=== PATIENT | female | born 1995 | race Caucasian/White ===

== ENCOUNTER 2022-08-27 16:39 | Inpatient (IN) ==
[2022-08-27] MEDS ORDERED: SODIUM CHLORIDE 0.9% 1000ML 1,000 ML IV STA (16:47)
[2022-08-27] MEDS ORDERED: ONDANSETRON INJ 2 MG/ML 2 ML VIAL IV STA (16:47)
--- NOTE | 2022-08-27 16:52 | Emergency Department Note ---
Impression & Plan Closed fracture of right fibula and tibia, Contusion of hand, right ED Provider Note NAME: ARNALDO HARTLEY AGE: 26 SEX: F : 1995 ARRIVES VIA: Ambulance INFORMANT: Patient, ED PROVIDER(S): Phi Cedillo DO CHIEF COMPLAINT: Right leg pain HPI: The patient is a 26-year-old female who presented to the emergency department by ambulance for an evaluation of right leg injury. The patient was on roller skates. She fell but her foot was in the roller skate and she felt an injury to the right leg. The patient was unable to ambulate. She was brought to the emergency department by ambulance. She received no medication but was splinted prior to arrival. She denies having any other injuries. She states that she had a similar episode and injured her left forearm in the past. She is very anxious because of this previous injury. She denies having any headache nausea or vomiting. She was wearing a helmet. She denies having any back pain. ROS: See above HPI for pertinent positives & negatives. A total of 10 systems reviewed and were otherwise negative. PAST MEDICAL HISTORY: See Below PAST SURGICAL HISTORY: See Below FAMILY HISTORY: See Below SOCIAL HISTORY: See Below HOME MEDICATIONS: See Below ALLERGIES: See Below VITALS: See Below PHYSICAL EXAMINATION: GENERAL: The patient is awake and alert. She is very anxious and appears to be in severe pain EYES: The conjunctivae are clear. The pupils are round and reactive. EARS, NOSE, MOUTH AND THROAT: The nose is without any evidence of any deformity. NECK: The neck is nontender and supple. RESPIRATORY: Normal respiratory effort is noted there is no evidence of wheezing rhonchi or rales CARDIOVASCULAR: Regular rate and rhythm noted there no murmurs rubs or gallops normal S1 normal S2. GASTROINTESTINAL: The abdomen is soft. Abdomen is nontender. BACK: No midline tenderness or or step-off noted range of motion in flexion extension as well as rotation no signs of muscle spasm noted MUSCULOSKELETAL/EXTREMITIES: There is severe tenderness and deformity to the right lower leg. Appears to be mostly on her distal tib-fib. She does not have any pain over her right knee. She has no pain over her proximal fibula. She does have pain over the lateral aspect of her right foot. There is ecchymosis over that area as well. SKIN: There is no obvious evidence of any rash. There are no petechiae, pallor or cyanosis noted. NEUROLOGIC: Patient is awake alert and oriented x3 MEDICAL DECISION MAKING: The patient is a 26-year-old female who presented to the emergency department for an evaluation after an injury to her right leg. She was at a skating camp at [place]. She fell and injured her right leg. The patient has had a very bad experience with a left forearm fracture in the past. For this reason she was very anxious and required significant pain management as well as anxiety ma nagement. I discussed patient's laboratory and radiographic studies with her. She was found to have a fracture to her tib-fib. This was significant and likely will require surgical management. For this reason I discussed her condition with the on-call orthopedic surgeon. They have agreed to evaluate the patient in the emergency department for further management and disposition. The patient was treated with pain medication. She was treated with splinting. The patient was significantly improved. Triage Nursing notes reviewed. Prior medical records reviewed Vital Signs: reviewed and remarkable for no significant abnormalities Differential diagnosis: Fracture, subluxation, dislocation, contusion, ligamentous injury, neurovascular, compartment syndrome, rhabdomyolysis, as well as other patho logies. ER treatment provided: See below Diagnostics interpreted by me: ECG: none Cardiac Monitoring: An order was placed for continuous cardiac monitoring. The monitor shows a rate of 62 bpm with sinus rhythm. Laboratory studies: As stated above and show below. Imaging studies: See below. Radiographic imaging was reviewed by myself Consultation(s): I discussed this case with Dr. Montes who is on for orthopedics. He will admit the patient primarily to his service likely for operative management tom morning. The patient is to be n.p.o. after midnight. Past Med/Surg History Medical History Left forearm fracture Social History Smoking Status: Never smoker Preferred Language: Indonesian Feels Safe at Home: Yes Allergies Allergies Allergy/AdvReac Type Severity Reaction Status Date / Time cefepime Allergy Severe neurotropen Verified 08/27/22 18:46 ia ketamine Allergy Severe Difficulty Verified 08/27/22 18:46 Breathing peanut Allergy Severe Anaphylaxis Verified 08/27/22 18:46 vancomycin Allergy Severe redmans Verified 08/27/22 18:46 syndrome sesame seed Allergy Intermediate Gastrointestinal Verified 08/27/22 18:46 Upset pollen extracts Allergy Mild sneezing & Verified 08/27/22 18:46 itchy,watery eyes Home Meds Home Medications Medication Instructions Recorded Confirmed epinephrine 0.3 mg/0.3 mL 0.3 ml IM UD PRN Anaphylaxis 08/27/22 08/27/22 injection, auto-injector hydroxyzine HCl 25 mg tablet 25 mg PO TID PRN Anxiety 08/27/22 08/27/22 methylphenidate HCl 5 mg tablet 5 mg PO BID 08/27/22 08/27/22 ofloxacin 0.3 % ear drops 1 drp otic (ear) UD 08/27/22 08/27/22 trazodone 150 mg tablet 150 mg PO HS PRN Sleep 08/27/22 08/27/22 Results & Data (ED) Vital Signs Vital Signs - 24 hr 08/27/22 16:47 Temperature 37.3 C Temperature Source Oral Pulse Rate 99 H Respiratory Rate 24 Respiratory Pattern Tachypnea Blood Pressure 132/87 Blood Pressure Mean 102 Pulse Oximetry 100 Oxygen Delivery Method Room Air Sepsis Recent Fever Within 48 Hours No Sepsis New/Unexplained Change in Mental Status N/A Sepsis Action Taken by Nursing No Action Required Home Medications Current Medication List: was personally reviewed by me Laboratory Data Attestation: I reviewed the patient's lab results. 08/27/22 17:01 08/27/22 17:01 Lab Results 08/27/22 08/27/22 08/27/22 Range/Units 17:01 17:01 17:01 WBC 14.97 H (4.8-10.8) K/ul RBC 4.49 (4.20-5.40) M/uL Hgb 13.5 (12.0-16.0) g/dl Hct 38.1 (37.0-47.0) % MCV 84.9 (80.0-100.0) fL MCH 30.1 (25.0-34.0) pg MCHC 35.4 (32.0-36.0) g/dL RDW Std Deviation 37.3 (36.4-46.3) fL RDW Coeff of Tiburcio 12.2 (11.5-14.5) % Plt Count 342 (130-400) K/uL MPV 10.0 (9.4-12.4) fL Immature Gran % (Auto) 0.5 % Neut % (Auto) 80.8 % Lymph % (Auto) 11.4 % [place] % (Auto) 6.6 % Eos % (Auto) 0.2 % Baso % (Auto) 0.5 % Neut # (Auto) 12.11 H (1.40-6.50) K/uL Lymph # (Auto) 1.70 (1.2-3.4) K/uL [place] # (Auto) 0.99 H (0.11-0.59) K/uL Eos # (Auto) 0.03 (0-0.50) K/uL Baso # (Auto) 0.07 (0-0.2) K/uL Immature Gran # (Auto) 0.07 (0.01-0.20) K/uL Sodium 141 (136-145) mmol/L Potassium 3.3 L (3.5-5.1) mmol/L Chloride 106 (98-107) mmol/L Carbon Dioxide 23 (21-32) mmol/L Anion Gap 12 H (3-11) BUN 8 (6-23) mg/dl Creatinine 0.55 L (0.6-1.2) mg/dl Est Cr Clr Drug Dosing 173.6 ml/min Est GFR ( Amer) > 150.0 ml/min Est GFR (Non-Af Amer) 129.5 ml/min BUN/Creatinine Ratio 14.5 (10-20) Glucose 85 (70-99(Fasting)) mg/dl Calcium 9.5 (8.6-10.3) mg/dl Total Bilirubin 0.7 (0.2-1.0) mg/dl AST 26 (13-39) U/L ALT 32 (7-52) U/L Alkaline Phosphatase 89 (34-104) U/L Total Protein 7.4 (6.0-8.3) gm/dl Albumin 4.7 (3.4-5.0) gm/dl Globulin 2.7 (2.5-4.0) gm/dl Albumin/Globulin Ratio 1.7 (0.9-2) Lipase 14 (11-82) U/L HCG, Qual Negative (Negative) SARS-CoV-2, RNA, NAAT (NEGATIVE) 08/27/22 Range/Units 17:59 WBC (4.8-10.8) K/ul RBC (4.20-5.40) M/uL Hgb (12.0-16.0) g/dl Hct (37.0-47.0) % MCV (80.0-100.0) fL MCH (25.0-34.0) pg MCHC (32.0-36.0) g/dL RDW Std Deviation (36.4-46.3) fL RDW Coeff of Tiburcio (11.5-14.5) % Plt Count (130-400) K/uL MPV (9.4-12.4) fL Immature Gran % (Auto) % Neut % (Auto) % Lymph % (Auto) % [place] % (Auto) % Eos % (Auto) % Baso % (Auto) % Neut # (Auto) (1.40-6.50) K/uL Lymph # (Auto) (1.2-3.4) K/uL [place] # (Auto) (0.11-0.59) K/uL Eos # (Auto) (0-0.50) K/uL Baso # (Auto) (0-0.2) K/uL Immature Gran # (Auto) (0.01-0.20) K/uL Sodium (136-145) mmol/L Potassium (3.5-5.1) mmol/L Chloride (98-107) mmol/L Carbon Dioxide (21-32) mmol/L Anion Gap (3-11) BUN (6-23) mg/dl Creatinine (0.6-1.2) mg/dl Est Cr Clr Drug Dosing ml/min Est GFR ( Amer) ml/min Est GFR (Non-Af Amer) ml/min BUN/Creatinine Ratio (10-20) Glucose (70-99(Fasting)) mg/dl Calcium (8.6-10.3) mg/dl Total Bilirubin (0.2-1.0) mg/dl AST (13-39) U/L ALT (7-52) U/L Alkaline Phosphatase (34-104) U/L Total Protein (6.0-8.3) gm/dl Albumin (3.4-5.0) gm/dl Globulin (2.5-4.0) gm/dl Albumin/Globulin Ratio (0.9-2) Lipase (11-82) U/L HCG, Qual (Negative) SARS-CoV-2, RNA, NAAT NEGATIVE (NEGATIVE) Administered Medications Morphine Sulfate (Morphine Sulfate 4 Mg/Ml 1 Ml Carp\Vial) 4 mg IV Q15M PRN PRN Reason: Pain Stop: 09/10/22 16:46 Last Admin: 08/27/22 20:28 Dose: 4 mg Documented By: Admin: 08/27/22 17:36 Dose: 4 mg Documented By: Admin: 08/27/22 17:08 Dose: 4 mg Documented By: DHAVAL Oxycodone/Acetaminophen (Oxycodone/Acetaminophen 5mg/325mg Tab) 1 - 2 tab PO Q4H PRN PRN Reason: Pain Stop: 09/10/22 20:21 Last Admin: 08/27/22 22:09 Dose: 2 tab Documented By: MILLICENT Discontinued Medications Sodium Chloride (Nss 1000ml) 1,000 mls @ 999 mls/hr IV .Q1H1M STA Stop: 08/27/22 17:47 Last Infusion: 08/27/22 18:47 Dose: 0 mls/hr Documented By: Admin: 08/27/22 17:08 Dose: 999 mls/hr Documented By: DHAVAL Lorazepam (Lorazepam 2 Mg/1 Ml Vial) 1 mg IV NOW STA Stop: 08/27/22 17:03 Last Admin: 08/27/22 17:07 Dose: 1 mg Documented By: DHAVAL Ondansetron HCl (Ondansetron Inj 2 Mg/Ml 2 Ml Vial) 4 mg IV NOW STA Stop: 08/27/22 16:48 Last Admin: 08/27/22 17:07 Dose: 4 mg Documented By: DHAVAL Imaging Data Attestation: I personally reviewed and interpreted this imaging study as foll ows: My Impression: X-ray of the right tib-fib was obtained in the emergency department. My interpretation is displaced right tib-fib fracture, final report below. X-ray of the right hand was obtained in the emergency department. My interpretation is no fracture, final report below. Chest x-ray was obtained in the emergency department. My interpretation is no acute disease no infiltrate, final report below Radiologist's Impression: Tibia/Fibula X-Ray 08/27/22 16:47 XR tibia fibula RT 2V CLINICAL HISTORY: Trauma. Right lower leg pain. COMPARISON STUDY: None. FINDINGS: Soft tissue swelling within the right lower leg. No radiopaque foreign bodies. There are displaced oblique fractures within the proximal shaft of the right fibula and distal shaft of the right tibia. The proximal fibular fracture demonstrates 4 mm of medial displacement. The distal tibial fracture demonstrates 7 mm of lateral displacement. The ankle mortise is maintained. IMPRESSION: Displaced right tibial and fibular fractures as described above. ACT 112: Negative or not required by law. Electronically signed by: Lul Stevenson M.D. 08/27/2022 5:56 PM Chest X-Ray 08/27/22 17:51 XR chest 1V portable HISTORY: Preop. Right tibial fracture. COMPARISON: None. FINDINGS: The lungs are clear. Cardiac silhouette is normal in size. No pleural effusions. No pneumothorax. IMPRESSION: No acute process. ACT 112: Negative or not required by law. Electronically signed by: Lul Stevenson M.D. 08/27/2022 6:50 PM Hand X-Ray 08/27/22 18:02 XR hand RT min 3V routine CLINICAL HISTORY: fall. Right thumb pain. COMPARISON STUDY: None. FINDINGS: No fracture or dislocation within the right hand. Specifically, the right thumb is intact. No radiopaque foreign bodies. No soft tissue swelling. IMPRESSION: No fracture or dislocation within the right hand. ACT 112: Negative or not required by law. Electronically signed by: Lul Stevenson M.D. 08/27/2022 6:52 PM Discharge Plan Visit Data Chief Complaint: Ankle Pain Stated Complaint: Ankle Pain ED Provider: Phi Cedillo Discharge Problem: Closed fracture of right fibula and tibia, Contusion of hand, right Patient Disposition: Admitted As Inpatient Discharge Instructions Interventions: ED Discharge Assessment Last Done: 08/27/22 19:53
[2022-08-27] MEDS ORDERED: LORazepam 2 MG/1 ML VIAL IV STA (17:02)
[2022-08-27] MEDS: MoRPHine SULFATE 4 MG/ML 1 ML CARP\\VIAL IV PRN ×3 (17:08→20:28)
--- NOTE | 2022-08-27 17:57 | XRay Report ---
XR tibia fibula RT 2V CLINICAL HISTORY: Trauma. Right lower leg pain. COMPARISON STUDY: None. FINDINGS: Soft tissue swelling within the right lower leg. No radiopaque foreign bodies. There are di splaced oblique fractures within the proximal shaft of the right fibula and distal shaft of the right tibia. The proximal fibular fracture demonstrates 4 mm of medial displacement. The distal tibial fra cture demonstrates 7 mm of lateral displacement. The ankle mortise is maintained. IMPRESSION: Displaced right tibial and fibular fractures as described above. ACT 112: Negative or not required by law. Electronically signed by: Lul Stevenson M.D. 08/27/2022 5:56 PM
[2022-08-27 18:03] LABS: Basophils # (auto) 0.07 K/uL (0-0.2); Basophils % (auto) 0.5 %; Eosinophils # (auto) 0.03 K/uL (0-0.50); Eosinophils % (auto) 0.2 %; Hematocrit (blood only) 38.1 % (37.0-47.0); Hemoglobin 13.5 g/dl (12.0-16.0); Immature Granulocytes # (auto) 0.07 K/uL (0.01-0.20); Immature Granulocytes % (auto) 0.5 %; Lymphocytes % (auto) 11.4 %; Mean Corpuscular Hemoglobin 30.1 pg (25.0-34.0); Mean Corpuscular Hgb Conc 35.4 g/dL (32.0-36.0); Mean Corpuscular Volume 84.9 fL (80.0-100.0); Monocytes # (auto) 0.99 K/uL (0.11-0.59); Monocytes % (auto) 6.6 %; Neutrophils # (auto) 12.11 K/uL (1.40-6.50); Neutrophils % (auto) 80.8 %; Platelet Count 342 K/uL (130-400); RDW Coefficient of Variation 12.2 % (11.5-14.5); RDW Standard Deviation 37.3 fL (36.4-46.3); Red Blood Count 4.49 M/uL (4.20-5.40); White Blood Count 14.97 K/ul (4.8-10.8)
[2022-08-27 18:12] LABS: Alanine Aminotransferase 32 U/L (7-52); Albumin Globulin Ratio 1.7 (0.9-2); Albumin Level 4.7 gm/dl (3.4-5.0); Alkaline Phosphatase 89 U/L (34-104); Anion Gap 12 (3-11); Aspartate Aminotransferase 26 U/L (13-39); BUN Creatinine Ratio 14.5 (10-20); Bilirubin,Total 0.7 mg/dl (0.2-1.0); Blood Urea Nitrogen 8 mg/dl (6-23); Calcium 9.5 mg/dl (8.6-10.3); Carbon Dioxide 23 mmol/L (21-32); Chloride 106 mmol/L (98-107); Creatinine Clr Calc Pharmacy 173.6 ml/min; Est GFR (African American) > 150.0 ml/min; Est GFR (Non-African American) 129.5 ml/min; Globulin 2.7 gm/dl (2.5-4.0); Glucose 85 mg/dl (70-99(Fasting)); Lipase 14 U/L (11-82); Potassium 3.3 mmol/L (3.5-5.1); Sodium 141 mmol/L (136-145); Total Protein 7.4 gm/dl (6.0-8.3)
[2022-08-27 18:19] LABS: Pregnancy Test, Serum Negative (Negative)
--- NOTE | 2022-08-27 18:51 | XRay Report ---
XR chest 1V portable HISTORY: Preop. Right tibial fracture. COMPARISON: None. FINDINGS: The lungs are clear. Cardiac silhouette is normal in size. No pleural effusions. No pneumot horax. IMPRESSION: No acute process. ACT 112: Negative or not required by law. Electronically signed by: Lul Stevenson M.D. 08/27/2022 6:50 PM
--- NOTE | 2022-08-27 18:53 | XRay Report ---
XR hand RT min 3V routine CLINICAL HISTORY: fall. Right thumb pain. COMPARISON STUDY: None. FINDINGS: No fracture or dislocation within the right hand. Specifically, the right thumb is intact. No radiopaque foreign bodies. No soft tissue swelling. IMPRESSION: No fracture or dislocation within the right hand. ACT 112: Negative or not required by law. Electronically signed by: Lul Stevenson M.D. 08/27/2022 6:52 PM
[2022-08-27] MEDS: oxyCODONE/ACETAMINOPHEN 5mg/325mg TAB PO PRN (22:09)
[2022-08-28] MEDS: MoRPHine SULFATE 4 MG/ML 1 ML CARP\\VIAL IV PRN ×4 (04:16→18:49)
[2022-08-28] MEDS ORDERED: ceFAZolin 2000MG 2,000 MG/15 ML SYR IV SCH (06:00)
[2022-08-28] MEDS: ONDANSETRON INJ 2 MG/ML 2 ML VIAL IV PRN ×2 (06:11→18:49)
[2022-08-28] MEDS ORDERED: LIDOCAINE 2% 2 ML VIAL/AMP(20MG/ML) INFIL ONE (06:56)
[2022-08-28] MEDS ORDERED: DEXAMETHASONE SOD INJ 4 MG/ML VIAL ONE (06:56)
[2022-08-28] MEDS ORDERED: MIDAZOLAM HCL 1 MG/ML 2ML VIAL ONE (06:56)
[2022-08-28] MEDS ORDERED: fentaNYL citrate PF 100 MCG/2 ML VIAL ONE (06:56)
[2022-08-28] MEDS ORDERED: ONDANSETRON INJ 2 MG/ML 2 ML VIAL ONE (06:56)
[2022-08-28] MEDS ORDERED: PROPOFOL IV EMULSION 10 MG/ML 20 ML VIAL IV ONE ×2 (06:56→10:13)
--- NOTE | 2022-08-28 07:40 | Anesthesiology Consultation ---
Date of Service August 28, 2022 Assessment & Plan Chart Review Chart Review: Acceptable Risk for Surgery and Patient NOT seen in Pre Admission Testing Consults Requested none ASA ASA2 Proposed Anesthesia Anesthesia Type: General History Surgery Operation Date: 08/28/22 07:30 Proposed Procedures p Right Intramedullary Nail Tibia - Bran R. Simon, Height/Weight Height: 5 ft 3 in Weight: 94.3 kg Allergies Allergy/AdvReac Type Severity Reaction Status Date / Time cefepime Allergy Severe neurotropen Verified 08/27/22 18:46 ia ketamine Allergy Severe Difficulty Verified 08/27/22 18:46 Breathing peanut Allergy Severe Anaphylaxis Verified 08/27/22 18:46 vancomycin Allergy Severe redmans Verified 08/27/22 18:46 syndrome sesame seed Allergy Intermediate Gastrointestinal Verified 08/27/22 18:46 Upset pollen extracts Allergy Mild sneezing & Verified 08/27/22 18:46 itchy,watery eyes Medications Home Medications Medication Instructions Recorded Confirmed Last Taken epinephrine 0.3 mg/0.3 mL 0.3 ml IM UD PRN Anaphylaxis 08/27/22 08/27/22 Unknown injection, auto-injector hydroxyzine HCl 25 mg tablet 25 mg PO TID PRN Anxiety 08/27/22 08/27/22 Unknown methylphenidate HCl 5 mg tablet 5 mg PO BID 08/27/22 08/27/22 08/22/22 ofloxacin 0.3 % ear drops 1 drp otic (ear) UD 08/27/22 08/27/22 Unknown trazodone 150 mg tablet 150 mg PO HS PRN Sleep 08/27/22 08/27/22 Unknown Active Medications Generic Name Dose Route Start Last Admin Trade Name Freq PRN Reason Stop Dose Admin Morphine Sulfate 4 mg 08/27/22 16:47 08/28/22 07:33 Morphine Sulfate 4 Mg/Ml 1 Ml Carp\Vial IV 09/10/22 16:46 4 mg Q15M PRN Administration Pain Ondansetron HCl 4 mg 08/27/22 20:22 08/28/22 06:11 Ondansetron Inj 2 Mg/Ml 2 Ml Vial IV 09/26/22 20:21 4 mg Q6H PRN Administration Nausea/Vomiting Oxycodone/Acetaminophen 1 - 2 tab 08/27/22 20:22 08/27/22 22:09 Oxycodone/Acetaminophen 5mg/325mg Tab PO 09/10/22 20:21 2 tab Q4H PRN Administration Pain Past Medical History Medical History Left forearm fracture obese ADHD Exercise / Class Metabolic Activity II 4-5 Yardwork/Stairs/Walk up hill Past Anesthesia History No Hx of Anesthesia Complications and No Family Hx of Anesthesia Complications History of PONV No Hx of PONV and No Hx of Motion Sickness Social History Smoking Status: Never smoker Do You Dip or Chew Tobacco: No Hx Alcohol Use: Yes Alcohol type: beer alcohol intake frequency: holidays/special occasions only Hx Substance Use: Yes substance use type: marijuana Last Used Substance: Days (ago) Physical Exam Vital Signs Last Vital Signs Temp 36.9 C 08/27/22 20:00 Pulse 123 H 08/27/22 20:00 Resp 20 08/27/22 20:00 BP 146/85 H 08/27/22 20:00 Pulse Ox 98 08/27/22 20:00 O2 Del Method Room Air 08/27/22 20:00 Testing Laboratory Results 08/27/22 17:01 08/27/22 17:01 Chest X-Ray Date: 08/27/22 Findings: + NAD
--- NOTE | 2022-08-28 08:30 | History & Physical Report ---
Date of Service August 28, 2022 Assessment & Plan (1) Closed fracture of right fibula and tibia: Plan: Nonweightbearing right lower extremity Pain control Ice/elevate Hold DVT prophylaxis for OR Plan for or today for right tibia intramedullary nail Admission and Anticipated Discharge Date Admission Date: August 27, 2022 History of Present Illness Chief Complaint: Right tibia fracture Primary Care Provider: NO PCP 26-year-old female presenting after injuring her right tibia while rollerblading yesterday. She presented to the emergency department where radiographs were obtained demonstrating a displaced right midshaft tibia fracture with associated proximal fibula fracture. She denies any other injuries or trauma. Patient was admitted to orthopedic service for planned operative intervention. Allergies Allergy/AdvReac Type Severity Reaction Status Date / Time cefepime Allergy Severe neurotropen Verified 08/27/22 18:46 ia ketamine Allergy Severe Difficulty Verified 08/27/22 18:46 Breathing peanut Allergy Severe Anaphylaxis Verified 08/27/22 18:46 vancomycin Allergy Severe redmans Verified 08/27/22 18:46 syndrome sesame seed Allergy Intermediate Gastrointestinal Verified 08/27/22 18:46 Upset pollen extracts Allergy Mild sneezing & Verified 08/27/22 18:46 itchy,watery eyes Home Medications Medication Instructions Recorded Confirmed Type epinephrine 0.3 mg/0.3 mL 0.3 ml IM UD PRN Anaphylaxis 08/27/22 08/27/22 History injection, auto-injector hydroxyzine HCl 25 mg tablet 25 mg PO TID PRN Anxiety 08/27/22 08/27/22 History methylphenidate HCl 5 mg tablet 5 mg PO BID 08/27/22 08/27/22 History ofloxacin 0.3 % ear drops 1 drp otic (ear) UD 08/27/22 08/27/22 History trazodone 150 mg tablet 150 mg PO HS PRN Sleep 08/27/22 08/27/22 History Past Med/Surg History Medical History Left forearm fracture Social History Smoking Status: Never smoker Second Hand Exposure: No; Do You Dip or Chew Tobacco: No; Tobacco Cessation Education Requested by Patient: No Hx Alcohol Use: Yes Alcohol type: beer Hx Substance Use: Yes Last Used Substance: Days (ago) Preferred Language: Georgian Communication Ability: Effective Hydrological Technical Officer Required: No Beliefs That Will Affect Care: None Current Living Situation: Other Feels Safe at Home: Yes Safety Concerns: Feels Safe At This Time Assistive Devices: None Physical Exam Constitutional: General: No acute distress, alert and oriented person place time Respiratory: No audible wheezing Cardiovascular: Nontachycardic Musculoskeletal: Right lower extremity -In splint -Sensation grossly intact to light touch s/spn/dpn/t/s -Fires EHL/FHL/ wiggles toes -BCR over toes Results & Data Results & Data Vital Signs (Past 12 Hours) Vital Signs Temp Pulse Resp BP Pulse Ox O2 Del Method 08/28/22 08:25 36.6 C 97 H 20 114/79 99 Room Air 08/28/22 07:47 Room Air Diagnostic Findings Radiographs of the right tibia demonstrate displaced midshaft right tibia fracture and mildly displaced proximal fibula fracture Code Status & VTE Plan VTE Prophylaxis Plan VTE Prophylaxis will be ordered: Yes (1) Closed fracture of right fibula and tibia Encounter type: initial encounter Qualified Code(s): S82.201A - Unspecified fracture of shaft of right tibia, initial encounter for closed fracture; S82.401A - Unspecified fracture of shaft of right fibula, initial encounter for closed fracture
--- NOTE | 2022-08-28 08:36 | History & Physical Bridge Note ---
Date of Service August 28, 2022 History & Physical Bridge Note I have examined the patient, reviewed the History & Physical and in the interval since the performance of the History & Physical I have noted the following changes of clinical significance: no changes noted. Examined patient in the preoperative holding area. She is grossly neurovascular intact. She is able to wiggle her toes and sensation is intact to light touch in distributions of the saphenous/superficial peroneal nerve/deep peroneal nerve/tibial and sural nerve distributions. She has brisk capillary refill over her foot. Compartments are soft and compressible and she is able to tolerate some gentle passive range of motion of the foot and the toes. I had a lengthy discussion with her regarding risk benefits potential complications of left tibia intramedullary nail. These include but are not limited to: Infection, neurovascular injury, DVT, nonunion, malunion, anterior knee pain, and need for future surgery. After reviewing these she has elected proceed with surgical intervention and written consent was obtained.
[2022-08-28] MEDS ORDERED: BUPIVACAINE/EPINEPHRINE 0.25% 1:200,000 30 ML VIAL ONE (08:51)
[2022-08-28] MEDS ORDERED: HYDROmorphone INJ 2 MG/ML SYR/VIAL ONE (08:56)
[2022-08-28] MEDS ORDERED: PROMETHAZINE HCL 12.5 MG in SODIUM CHLORIDE 0.9% 50 ML IV PRN (09:50)
[2022-08-28] MEDS ORDERED: HYDROmorphone INJ 1 MG/ML SYRINGE IV PRN (09:50)
[2022-08-28] MEDS ORDERED: ePHEDrine sulfate 50 MG/ML AMP IV PRN (09:50)
[2022-08-28] MEDS ORDERED: FLUMAZENIL 0.1 MG/1 ML 10 ML VIAL IV PRN (09:50)
[2022-08-28] MEDS ORDERED: NALOXONE HCL 0.4 MG/1 ML VIAL/CARP IV PRN ×2 (09:50→10:32)
[2022-08-28] MEDS ORDERED: ONDANSETRON INJ 2 MG/ML 2 ML VIAL IV PRN ×2 (09:50→10:32)
[2022-08-28] MEDS ORDERED: ATROPINE SULFATE 0.1 MG/ML 10ML SYR IV PRN (09:50)
[2022-08-28] MEDS ORDERED: NEOSTIGMINE METHYLSULFATE 1 MG/ML 10ML VIAL ONE (09:50)
--- NOTE | 2022-08-28 10:22 | Post Operative Brief Note ---
Immediate Post Op Note v1 Date of Surgery August 28, 2022 Pre & Post Diagnosis Operation Date: 08/28/22 07:30 Pre-Op Diagnosis: Right Tibia Fracture Post-Op Diagnosis: Right Tibia Fracture I identified the patient and participated in the time-out.: Yes Procedure Operation Date: 08/28/22 07:30 Actual Procedures p Right Intramedullary Nail Tibia(Right) - Bran Montes DO Surgeon Bran Montes DO Hosiery Bagger none Estimated Blood Loss 25 Findings Consistent with Post-Op Diagnosis See dictation Complications None
--- NOTE | 2022-08-28 10:30 | Operative Report ---
Post Operative Report Pre & Post Diagnosis Operation Date: 08/28/22 07:30 Pre-Op Diagnosis: Right Tibia Fracture Post-Op Diagnosis: Right Tibia Fracture I identified the patient and participated in the time-out.: Yes Procedure Operation Date: 08/28/22 07:30 Actual Procedures p Right Intramedullary Nail Tibia(Right) - Bran Montes DO Surgeon Bran Montes DO [employer] none Estimated Blood Loss 25 Findings Consistent with Post-Op Diagnosis See dictation Specimens None Complications None Indications 26-year-old female who presented to [facility] in the emergency department after injuring her right leg while roller skating. She noted immediate pain and deformity. In the emergency department radiographs were obtained demonstrating midshaft right tibia fracture with associated proximal fibula fracture. Patient was admitted to orthopedics for surgical intervention. We do lengthy discussion regarding risk benefits potential complications of right tibia intramedullary nail. These include but are not limited to: Infection, neurovascular injury, DVT, nonunion, malunion, anterior knee pain, and need for future surgery. After reviewing these she elected to proceed with surgical intervention and written consent was obtained. Description of Procedure Implants: Synthes tibial nail advanced 9 mm x 315 mm, 5 mm x 38 mm locking screw X2, 5 mm x 32 mm locking screw, 5 mm x 34 mm locking screw Patient was properly identified in the preoperative holding area and the right lower extremity was marked. She received antibiotics per protocol. She was taken back to the operative suite where she received general anesthesia. She was then transferred over to the OR table. Nonsterile thigh tourniquet was placed. She was then prepped and draped in the standard orthopedic fashion and timeout was then performed. A 3 cm incision just superior to the pole of the patella was then made through the skin. Electrocautery was used to dissect through the subcutaneous tissue down to the quadriceps tendon which was then split in line with the incision. Trocar was then introduced in through the incision and advanced through the patellofemoral joint to the tibial articular margin. Using the assistance of fluoroscopy starting point was established just medial to the lateral tibial spine and below the articular margin using a threaded guidewire. Position was confirmed on AP and lateral fluoroscopy. Opening reamer was then used to open the canal proximally. Guidewire was then removed and a threaded ball-tipped guidewire was then inserted into the proximal aspect of the canal and advanced distally. Fracture was held in reduction using traction and rotation. Length of the ball-tipped guidewire was measured and a 315 mm implant was selected. The canal was then reamed starting with a 8.5 mm reamer up to a 10.5 mm reamer to accommodate a 9 mm intramedullary nail. Intramedullary nail was then inserted. Attention was first turned to the distal medial to lateral interlocks. Incisions were made for both interlocking screws using the assistance of C-arm fluoroscopy and drill was used to drill bicortically. 38 mm interlock was placed in the most distal hole followed by a 32 mm screw for the more proximal distal hole. Both were noted to have excellent purchase. The nail was then back slapped proximally to compress at the fracture site. Proximal outrigger was then attached. Incisions were then made for proximal medial to lateral interlocks. Incision was made for static interlock as well as dynamic interlock. Drill was used to drill bicortically. For the static interlock a 34 mm screw was inserted followed by a 38 mm screw for the dynamic interlock. Proximal outrigger was then removed as well as the nail clinical ob. Final radiographs were obtained demonstrating satisfactory position of the implant and reduction of the fracture. Wounds were copiously irrigated using normal saline solution. Quadriceps tendon was closed in a [id number] fashion using 0 Vicryl suture. Subcutaneous tissues were closed using 2-0 Vicryl and skyler were used for the skin. Sterile dressings of Xeroform 4 x 4 gauze and Tegaderms were then applied. Patient was placed in a bulky Sterling cotton posterior slab splint. She tolerated the procedure well and was taken recovery room in hemodynamically stable condition I attest to the content of the Intraoperative Record and any orders documented therein. Any exceptions are noted below.
[2022-08-28] MEDS ORDERED: MAGNESIUM HYDROXIDE SUSP 30 ML UDC PO PRN (10:32)
[2022-08-28] MEDS ORDERED: METOCLOPRAMIDE HCL INJ 5 MG/ML 2 ML VIAL IV PRN (10:32)
[2022-08-28] MEDS ORDERED: bisacodyL 10 MG SUPP PR PRN (10:32)
--- NOTE | 2022-08-28 10:33 | Fluoroscopy Report ---
FL tibia/fibula RT 2V CLINICAL HISTORY: RT TIB IM NAIL COMPARISON STUDY: Right tibia and fibula radiographs August 27, 2022. FLUOROSCOPY TIME: 55 seconds. Ka, r: 1.9872 mGy FLUOROSCOPIC IMAGES: 8 FINDINGS: Fluoroscopy was provided during open reduction and internal fixation of the right tibial fr acture with intramedullary job with proximal and distal screws. Fracture alignment has significantly improved. Alignment of the fibular fracture has also improved. There are no unexpected radiopaque for eign bodies. IMPRESSION: Fluoroscopy provided during internal fixation of the right tibial fracture. ACT 112: Negative or not required by law. Electronically signed by: Mark Monaco M.D. 08/28/2022 10:31 AM
[2022-08-28] MEDS: fentaNYL citrate PF 100 MCG/2 ML VIAL IV PRN ×4 (10:50→11:05)
--- NOTE | 2022-08-28 11:19 | Anesthesiology Progress Note ---
Date of Service August 28, 2022 Anesthesia Post Procedure Vital Signs Vital Signs: Temp Pulse Pulse Pulse Resp BP BP 08/28/22 11:10 36.4 C L 57 L 16 112/68 08/28/22 11:00 68 17 105/70 08/28/22 10:50 60 15 112/74 08/28/22 10:40 79 13 118/70 08/28/22 10:30 36.1 C L 86 16 122/79 08/28/22 08:25 36.6 C 97 H 20 114/79 08/28/22 07:47 08/27/22 20:00 36.9 C 123 H 20 146/85 H 08/27/22 18:39 62 18 116/79 08/27/22 16:47 37.3 C 99 H 24 132/87 Pulse Ox O2 Del Method O2 Flow Rate 08/28/22 11:10 100 Nasal Cannula 2 08/28/22 11:00 99 Oxymask 4 08/28/22 10:50 100 Oxymask 4 08/28/22 10:40 99 Oxymask 4 08/28/22 10:30 99 Oxymask 6 08/28/22 08:25 99 Room Air 08/28/22 07:47 Room Air 08/27/22 20:00 98 Room Air 08/27/22 18:39 100 Room Air 08/27/22 16:47 100 Room Air Pain Intensity Right Ankle: Pain Intensity: 4 Transfer of Care Handoff Completed per policy Notes Mental Status: alert / awake / arousable Patient Amnestic to Procedure: Yes Nausea / Vomiting: adequately controlled Pain: adequately controlled Airway Patency, RR, SpO2: stable & adequate BP & HR: stable & adequate Hydration State: stable & adequate Anesthetic Complications: no major complications apparent
[2022-08-28] MEDS: HYDROmorphone INJ 0.5 MG/0.5 ML SYR IV PRN ×3 (11:56→20:32)
[2022-08-28] MEDS ORDERED: SUCCINYLCHOLINE CHLORIDE 20 MG/ML 10 ML VIAL IV ONE (13:36)
[2022-08-28] MEDS ORDERED: ROCURONIUM BROMIDE 10 MG/ML 5 ML VIAL IV ONE (13:36)
[2022-08-28 14:25] LABS: Appearance Urine Clear (Clear); Bilirubin Urine Negative (Negative); Blood Urine Negative (Negative); Color Urine Dark Yellow; Glucose Urine UA Negative (Negative); Ketones Urine 3+ (Negative); Leukocyte Esterase Urine Negative (Negative); Nitrite Urine Negative (Negative); Protein Urine Negative (Negative); Specific Gravity Urine 1.022 (1.000-1.030); Urobilinogen Urine Negative (Negative)
[2022-08-28] MEDS: SODIUM CHLORIDE 0.9% 1000ML 1,000 ML IV SCH (14:31)
[2022-08-28] MEDS: oxyCODONE/ACETAMINOPHEN 5mg/325mg TAB PO PRN ×2 (16:55→22:54)
[2022-08-28] MEDS: ceFAZolin 2000MG 2,000 MG/15 ML SYR IV SCH (16:56)
[2022-08-28] MEDS: SENNA 8.6 MG TAB PO SCH (20:26)
[2022-08-28] MEDS: APIXABAN 2.5 MG TAB PO SCH (20:26)
[2022-08-28] MEDS: DOCUSATE SODIUM 100 MG CAP PO SCH (20:26)
[2022-08-28] MEDS: OFLOXACIN 0.3% 75 DROPS/5 ML BTL OT SCH (20:27)
[2022-08-29] MEDS: HYDROmorphone INJ 0.5 MG/0.5 ML SYR IV PRN ×4 (00:25→21:14)
[2022-08-29] MEDS: SODIUM CHLORIDE 0.9% 1000ML 1,000 ML IV SCH (00:25)
[2022-08-29] MEDS: ceFAZolin 2000MG 2,000 MG/15 ML SYR IV SCH (00:28)
--- NOTE | 2022-08-29 07:14 | Orthopedic Progress Note ---
Date of Service August 29, 2022 Assessment & Plan (1) Closed fracture of right fibula and tibia: Plan: POD #1 s/p Right Intramedullary Nail Tibia NWB right lower extremity Pain control Ice/elevate dvt proph with patricia/scd/eliquis she will likely stay until tomorrow, [place] and [place] father will not be able to pick her up until tomorrow to drive back home. she will need f/u in [place] once discharged in 12-14 days Admission and Anticipated Discharge Date Admission Date: August 27, 2022 Subjective POD #1 s/p Right Intramedullary Nail Tibia Review of Systems Constitutional: no fever and no chills Respiratory: no cough and no dyspnea Cardiovascular: no chest pain, no dyspnea and no orthopnea Gastrointestinal: no abdominal pain, no nausea and no vomiting Physical Exam Physical Exam: Vital Signs Temp 36.7 C 08/29/22 04:06 Pulse 82 08/29/22 04:06 Resp 18 08/29/22 04:06 BP 113/64 08/29/22 04:06 Pulse Ox 95 08/29/22 04:06 O2 Del Method Room Air 08/29/22 04:06 O2 Flow Rate 2 08/28/22 11:35 Intake & Output 08/28/22 08/29/22 08/29/22 18:59 06:59 18:59 Intake Total 1275 / 2265 990 / 2265 Output Total 525 / 1875 1350 / 1875 Balance 750 / 390 -360 / 390 Weight 94.3 kg Intake: IV 990 / 990 Sodium Chlorid e 0.9% 1000ML 1, 990 / 990 000 ml @ 100 m ls/hr IV .Q10H [facility] Rx#:[id number] IV Perioperative 1100 / 1100 Oral 175 / 175 Output: Urine 500 / 500 Estimated Blood Loss 25 / 25 Urine Amount ([place]) 1350 / 1350 External 1350 / 1350 Musculoskeletal: right leg: nvdi, cr < 2 sec, able to wiggle toes, sensation intact to light touch. splint intact. Results & Data Vital Signs (Past 12 Hours) Vital Signs Temp Pulse Pulse Resp BP Pulse Ox O2 Del Method 08/29/22 04:06 36.7 C 82 18 113/64 95 Room Air 08/28/22 22:46 36.6 C 82 18 115/67 96 Room Air 08/28/22 19:15 36.8 C 84 18 107/67 94 Room Air (1) Closed fracture of right fibula and tibia Encounter type: initial encounter Qualified Code(s): S82.201A - Unspecified fracture of shaft of right tibia, initial encounter for closed fracture; S82.401A - Unspecified fracture of shaft of right fibula, initial encounter for closed fracture
[2022-08-29] MEDS: oxyCODONE/ACETAMINOPHEN 5mg/325mg TAB PO PRN ×3 (07:35→19:09)
[2022-08-29] MEDS: ONDANSETRON INJ 2 MG/ML 2 ML VIAL IV PRN (07:37)
[2022-08-29] MEDS: OFLOXACIN 0.3% 75 DROPS/5 ML BTL OT SCH ×2 (08:17→21:02)
[2022-08-29] MEDS: MULTIVITAMIN TAB PO SCH (08:17)
[2022-08-29] MEDS: APIXABAN 2.5 MG TAB PO SCH ×2 (08:18→21:03)
[2022-08-29] MEDS: DOCUSATE SODIUM 100 MG CAP PO SCH ×2 (08:18→21:02)
[2022-08-29 08:23] LABS: Hemoglobin 11.8 g/dl (12.0-16.0); Mean Corpuscular Hemoglobin 29.9 pg (25.0-34.0); Mean Corpuscular Hgb Conc 34.7 g/dL (32.0-36.0); Mean Corpuscular Volume 86.1 fL (80.0-100.0); Mean Platelet Volume 9.7 fL (9.4-12.4); Platelet Count 283 K/uL (130-400); RDW Coefficient of Variation 12.3 % (11.5-14.5); RDW Standard Deviation 38.6 fL (36.4-46.3); Red Blood Count 3.95 M/uL (4.20-5.40); White Blood Count 10.59 K/ul (4.8-10.8)
[2022-08-29 08:28] LABS: Anion Gap 9 (3-11); BUN Creatinine Ratio 7.8 (10-20); Blood Urea Nitrogen 4 mg/dl (6-23); Calcium 8.4 mg/dl (8.6-10.3); Carbon Dioxide 24 mmol/L (21-32); Chloride 106 mmol/L (98-107); Creatinine Clr Calc Pharmacy 182.5 ml/min; Est GFR (African American) > 150.0 ml/min; Est GFR (Non-African American) 132.7 ml/min; Glucose 101 mg/dl (70-99(Fasting)); Potassium 3.8 mmol/L (3.5-5.1); Sodium 139 mmol/L (136-145)
[2022-08-29] MEDS: traZODone HCL 50 MG TAB PO PRN (21:02)
[2022-08-29] MEDS: SENNA 8.6 MG TAB PO SCH (21:02)
[2022-08-30] MEDS: HYDROmorphone INJ 0.5 MG/0.5 ML SYR IV PRN ×3 (03:24→13:09)
[2022-08-30] MEDS: oxyCODONE/ACETAMINOPHEN 5mg/325mg TAB PO PRN ×3 (05:44→17:34)
--- NOTE | 2022-08-30 08:00 | Orthopedic Progress Note ---
Date of Service August 30, 2022 Assessment & Plan (1) Closed fracture of right fibula and tibia: Plan: POD #2 s/p Right Intramedullary Nail Tibia NWB right lower extremity Pain control Ice/elevate dvt proph with patricia/scd/eliquis Plan for discharge to home today. Patient will follow-up with orthopedic service where she resides in her home state. "patient can't use a walker or crutches safely due to old radius/ulna complex fracture with ORIF and a wheelchair would improve ADLs within her home" Admission and Anticipated Discharge Date Admission Date: August 27, 2022 Subjective Postop day 2 Patient lying in bed awake and alert. States that she is having some slight cramping in her foot off and on. States she is having pain at the fracture site but is tolerating well and medications are helping. No other complaints at this time. Her father is coming in today and they are hoping to be discharged today. Physical Exam Physical Exam: Dressing/splint is clean, dry, and intact. Toes are pink and warm. Sensation intact. She is moving the toes well. Capillary refill is less than 2 seconds Results & Data Vital Signs (Past 12 Hours) Vital Signs Temp Pulse Resp BP Pulse Ox O2 Del Method O2 Flow Rate 08/30/22 07:47 Room Air 08/30/22 07:31 36.5 C 92 H 17 103/68 93 Room Air 08/29/22 22:55 89 L Room Air 08/29/22 22:58 36.9 C 90 16 115/74 97 Nasal Cannula 2 (1) Closed fracture of right fibula and tibia Encounter type: initial encounter Qualified Code(s): S82.201A - Unspecified fracture of shaft of right tibia, initial encounter for closed fracture; S82.401A - Unspecified fracture of shaft of right fibula, initial encounter for closed fracture
[2022-08-30] MEDS: DOCUSATE SODIUM 100 MG CAP PO SCH ×2 (08:34→20:04)
[2022-08-30] MEDS: MULTIVITAMIN TAB PO SCH (08:34)
[2022-08-30] MEDS: OFLOXACIN 0.3% 75 DROPS/5 ML BTL OT SCH ×2 (08:34→20:04)
[2022-08-30] MEDS: APIXABAN 2.5 MG TAB PO SCH ×2 (08:34→20:03)
[2022-08-30] MEDS: KETOROLAC TROMETHAMINE 15 MG/ML VIAL IV SCH ×2 (15:35→20:03)
[2022-08-30] MEDS: ONDANSETRON INJ 2 MG/ML 2 ML VIAL IV PRN (15:37)
[2022-08-30] MEDS: SENNA 8.6 MG TAB PO SCH (20:04)
[2022-08-30] MEDS: traZODone HCL 50 MG TAB PO PRN (20:07)
[2022-08-31] MEDS: KETOROLAC TROMETHAMINE 15 MG/ML VIAL IV SCH ×2 (02:17→07:39)
[2022-08-31] MEDS: DOCUSATE SODIUM 100 MG CAP PO SCH (07:38)
[2022-08-31] MEDS: MULTIVITAMIN TAB PO SCH (07:39)
[2022-08-31] MEDS: APIXABAN 2.5 MG TAB PO SCH (07:39)
[2022-08-31] MEDS: OFLOXACIN 0.3% 75 DROPS/5 ML BTL OT SCH (07:40)
[2022-08-31] MEDS: oxyCODONE/ACETAMINOPHEN 5mg/325mg TAB PO PRN (07:47)
--- NOTE | 2022-08-31 08:53 | Orthopedic Progress Note ---
Date of Service August 31, 2022 Assessment & Plan (1) Closed fracture of right fibula and tibia: Plan: POD #3 s/p Right Intramedullary Nail Tibia NWB right lower extremity Pain control Ice/elevate dvt proph with patricia/scd/eliquis Plan for discharge to home today. Patient stated an additional day secondary to pain control and limited ambulation with PT. she will likely be using the wheelchair initially due to previous injury to her radius and ulna. Patient will follow-up with orthopedic service where she resides in her home state. Patient states that she already has an appointment scheduled. "patient can't use a walker or crutches safely due to old radius/ulna complex fracture with ORIF and a wheelchair would improve ADLs within her home" Admission and Anticipated Discharge Date Admission Date: August 27, 2022 Subjective Postop day 3 Patient lying in bed asleep. Easily awoken. No new complaints today. States that her pain control is better today. She is hoping to go home. Physical Exam Physical Exam: Splint/dressing is clean, dry, and intact. Neurovascular is intact. Toes are mobile. Cap refill is less than 2 seconds. She has no pain with increased passive dorsiflexion of the great toe Results & Data Vital Signs (Past 12 Hours) Vital Signs Temp Pulse Pulse Resp BP Pulse Ox O2 Del Method 08/31/22 07:33 36.7 C 88 16 121/78 95 Room Air 08/30/22 23:42 36.8 C 83 18 109/67 92 Room Air (1) Closed fracture of right fibula and tibia Encounter type: initial encounter Qualified Code(s): S82.201A - Unspecified fracture of shaft of right tibia, initial encounter for closed fracture; S82.401A - Unspecified fracture of shaft of right fibula, initial encounter for closed fracture
== END 2022-08-31 10:32 | disposition home or self-care (01) | DRG 494 ==
LOC: ED 16:39 → 3W 18:21
DX: Z20.822 Contact with and (suspected) exposure to COVID-19; W19.XXXA Unspecified fall, initial encounter; S82.301A Unspecified fracture of lower end of right tibia, initial encounter for closed fracture; Z88.4 Allergy status to anesthetic agent; Z79.899 Other long term (current) drug therapy; S82.431A Displaced oblique fracture of shaft of right fibula, initial encounter for closed fracture; Z88.1 Allergy status to other antibiotic agents; Y93.51 Activity, roller skating (inline) and skateboarding